=== PATIENT | female | born 1995 | race Caucasian/White ===

== ENCOUNTER 2018-12-26 22:11 | Emergency (ER) | payer MEDICAID, OTHER ==
[~2018-12-26] VITALS: Ht 165.1 cm; Wt 57.0 kg
[2018-12-26 23:13] LABS: CLARITY URINE TURBID (CLEAR); COLOR URINE YELLOW (YELLOW); KETONES URINE NEGATIVE (NEGATIVE); LEUKOCYTE ESTERASE URINE 1+ (NEGATIVE); NITRITE URINE NEGATIVE (NEGATIVE); OCCULT BLOOD URINE NEGATIVE (NEGATIVE); PH URINE >=9.0 (4.5-8.0); PROTEIN URINE NEGATIVE (NEGATIVE); SPECIFIC GRAVITY URINE 1.023 (1.005-1.030); UROBILINOGEN URINE 0.2 E.U./dL (0.2-1.0)
[2018-12-27] MEDS ORDERED: SODIUM CHLORIDE 0.9% 1,000 ML IV NR (01:26)
[2018-12-27 01:48] LABS: BASOPHILS % 0.3 % (0.0-2.0); EOSINOPHILS % 1.6 % (0.0-5.0); HEMATOCRIT. 35.6 % (36.0-48.0); LYMPHOCYTES % 29.8 % (20.0-50.0); MEAN CORPUSCULAR HEMOGLOBIN 28.3 pg (28.0-32.0); MEAN PLATELET VOLUME 6.8 fl (7.4-10.4); MONOCYTES % 9.3 % (2.0-8.0); PLATELET 217 x1000/uL (130-400); RED BLOOD CELL COUNT 4.24 mill/uL (4.2-5.4); RED CELL DISTRIBUTION WIDTH 16.7 % (11.6-14.6)
[2018-12-27 02:06] LABS: CHLORIDE 108 mEq/L (98-107)
[2018-12-27 02:29] LABS: B-HCG QUANTITATIVE 7288 mIU/mL (<3)
[2018-12-27] MEDS ORDERED: CEPHALEXIN 250MG CAPSULE PO NR (03:45)
[2018-12-27] MEDS ORDERED: ACETAMINOPHEN 500MG TABLET PO ONE (04:15)
[2018-12-27 04:30] VITALS: BP 107/54
== END 2018-12-27 04:47 | disposition home or self-care (01) ==
LOC: ER 22:11
DX: O20.0 Threatened abortion (principal); O23.42 Unspecified infection of urinary tract in pregnancy, second trimester; Z3A.16 16 weeks gestation of pregnancy
CPT/HCPCS: 36415; 76805; 81003; 81025; 84702; 86850; 86900; 96360; 99284

== ENCOUNTER 2022-07-11 12:39 | Observation (INO) | payer OTHER ==
[~2022-07-11] VITALS: Ht 160 cm; Wt 65.3 kg
[2022-07-12] MEDS ORDERED: PREN-15 PO (01:22)
== END 2022-07-11 17:00 | disposition home or self-care (01) ==
LOC: 8 EST LDRP 12:39
PROVIDERS: ADMIT Obstetrics & Gynecology; ATTEND Obstetrics & Gynecology
DX: O99.891 Other specified diseases and conditions complicating pregnancy (principal); R10.30 Lower abdominal pain, unspecified; M54.9 Dorsalgia, unspecified; O62.9 Abnormality of forces of labor, unspecified; Z3A.39 39 weeks gestation of pregnancy
CPT/HCPCS: 59025; 76815; 76818; G0378; G0379

== ENCOUNTER 2022-07-12 00:29 | Inpatient (IN) | payer OTHER ==
[~2022-07-12] VITALS: Ht 162.6 cm; Wt 65.8 kg
[2022-07-12] MEDS ORDERED: PREN-15 PO (01:22)
[2022-07-12] MEDS ORDERED: CARBOPROST TROMETHAMINE 250 MCG/ML AMPUL IM PRN (01:30)
[2022-07-12] MEDS ORDERED: LIDOCAINE HCL 1% 20ML VIAL (Pyxis) INJ INFIL SCH ×2 (01:30→22:00)
[2022-07-12] MEDS ORDERED: NALOXONE HCL 0.4 MG/ML 1ML VIAL IM PRN (01:30)
[2022-07-12] MEDS ORDERED: METHYLERGONOVINE MALEATE 0.2 MG/ML IM PRN (01:30)
[2022-07-12] MEDS: LACTATED RINGERS 1,000 ML IV SCH ×4 (02:36→23:59)
[2022-07-12 03:21] LABS: CLARITY URINE CLEAR (CLEAR); COLOR URINE YELLOW (YELLOW); KETONES URINE TRACE (NEGATIVE); LEUKOCYTE ESTERASE URINE 1+ (NEGATIVE); NITRITE URINE NEGATIVE (NEGATIVE); OCCULT BLOOD URINE NEGATIVE (NEGATIVE); PH URINE 6.5 (4.5-8.0); PROTEIN URINE TRACE (NEGATIVE)
[2022-07-12 03:21] LABS: BASOPHILS % 0.4 % (0.0-2.0); EOSINOPHILS % 1.2 % (0.0-5.0); HEMATOCRIT. 29.1 % (36.0-48.0); HEMOGLOBIN. 9.6 g/dL (12.0-16.0); LYMPHOCYTES % 26.5 % (20.0-50.0); MEAN CORPUSCULAR HEMOGLOBIN 24.6 pg (28.0-32.0); MEAN CORPUSCULAR VOLUME 74.8 fL (81.0-99.0); MEAN PLATELET VOLUME 7.8 fl (7.4-10.4); MONOCYTES % 8.9 % (2.0-8.0); PLATELET 198 x1000/uL (130-400); RED BLOOD CELL COUNT 3.89 mill/uL (4.2-5.4)
[2022-07-12 03:31] LABS: *AMPHETAMINES SCREEN URINE NEGATIVE (NEGATIVE); *BARBITURATES SCREEN URINE NEGATIVE (NEGATIVE); *BENZODIAZEPINES SCREEN URINE NEGATIVE (NEGATIVE); *COCAINE SCREEN URINE NEGATIVE (NEGATIVE); METHADONE URINE SCREEN NEGATIVE (NEGATIVE); OPIATES URINE SCREEN NEGATIVE (NEGATIVE); PHENCYCLIDINE URINE SCREEN NEGATIVE (NEGATIVE)
[2022-07-12 03:32] LABS: INR 0.9; PARTIAL THROMBOPLASTIN TIME 24.2 sec (23.4-31.0); PROTHROMBIN TIME 9.9 sec (9.6-11.0)
[2022-07-12 04:16] LABS: CANNABINOID URINE SCREEN PRESUMTIVE POSITIVE (NEGATIVE)
[2022-07-12 04:22] LABS: HEPATITIS B SURFACE ANTIGEN NEGATIVE
[2022-07-12] MEDS ORDERED: ONDANSETRON HCL 4MG/2ML INJ IV PRN (09:30)
[2022-07-12] MEDS ORDERED: MISOPROSTOL 100MCG TABLET VG PRN (09:30)
[2022-07-12] MEDS ORDERED: ROPIVACAINE HCL/PF EPIDURAL 200 ML EPI SCH (13:30)
[2022-07-12] MEDS ORDERED: OXYTOCIN 30 UNITS/500ML NS PMX 500 ML IV SCH (17:30)
[2022-07-12] MEDS ORDERED: MINERAL OIL 30ML BOTTLE TOP NR (22:00)
[2022-07-12] MEDS: BUTORPHANOL TARTRATE 2 MG/ML VIAL IV PRN ×2 (22:03→23:59)
[2022-07-13] MEDS ORDERED: ONDANSETRON HCL 4MG/2ML INJ IV PRN (00:15)
[2022-07-13] MEDS ORDERED: ROPIVACAINE HCL/PF EPIDURAL 200 ML EPI ONE (01:38)
[2022-07-13] MEDS: LACTATED RINGERS 1,000 ML IV SCH ×2 (02:10→05:31)
[2022-07-13] MEDS ORDERED: OXYTOCIN 30 UNITS/500ML NS PMX 500 ML IV SCH (08:30)
[2022-07-13] MEDS ORDERED: LANOLIN OINT 7GM TUBE TOP PRN (08:30)
[2022-07-13] MEDS ORDERED: RHO(D) IMMUNE GLOBULIN 300 MCG/SYR IM PRN (08:30)
[2022-07-13] MEDS ORDERED: IBUPROFEN 400MG TABLET PO PRN (08:30)
[2022-07-13] MEDS ORDERED: METHYLERGONOVINE MALEATE 0.2 MG/ML IM PRN (08:30)
[2022-07-13 09:00] VITALS: BP 112/60
[2022-07-13] MEDS: IBUPROFEN 800MG TABLET PO PRN ×2 (10:10→20:22)
[2022-07-13] MEDS: PRENATAL VIT/FE FUMARATE/FA TABLET PO SCH (10:10)
[2022-07-13 16:00] VITALS: BP 102/63
[2022-07-13 20:00] VITALS: BP 109/56
[2022-07-13] MEDS ORDERED: DOCUSATE SODIUM 100MG CAPSULE PO SCH (21:00)
[2022-07-14] MEDS: IBUPROFEN 800MG TABLET PO PRN ×2 (02:09→10:00)
[2022-07-14 04:00] VITALS: BP 110/60
[2022-07-14 06:52] LABS: BASOPHILS % 0.3 % (0.0-2.0); EOSINOPHILS % 1.4 % (0.0-5.0); HEMATOCRIT. 26.1 % (36.0-48.0); HEMOGLOBIN. 8.7 g/dL (12.0-16.0); LYMPHOCYTES % 22.9 % (20.0-50.0); MEAN CORPUSCULAR HEMOGLOBIN 24.3 pg (28.0-32.0); MEAN CORPUSCULAR VOLUME 73.2 fL (81.0-99.0); MEAN PLATELET VOLUME 7.7 fl (7.4-10.4); MONOCYTES % 8.7 % (2.0-8.0); NEUTROPHILS % 66.7 % (40.0-76.0); PLATELET 196 x1000/uL (130-400); RED BLOOD CELL COUNT 3.57 mill/uL (4.2-5.4); RED CELL DISTRIBUTION WIDTH 14.1 % (11.6-14.6)
[2022-07-14] MEDS ORDERED: IBUP-2030 PO (08:04)
[2022-07-14] MEDS ORDERED: FERR325T6 MT (08:04)
[2022-07-14] MEDS: PRENATAL VIT/FE FUMARATE/FA TABLET PO SCH (09:59)
[2022-07-14 10:00] VITALS: BP 107/66
[2022-07-14] MEDS ORDERED: BENZOCAINE/LANOLIN/ALOE VERA SPRAY TOP PRN (12:30)
[2022-07-18 17:09] LABS: CANNABINOID CONFIRMATION URINE Positive (.)
== END 2022-07-14 15:50 | disposition home or self-care (01) | DRG 560 ==
LOC: OBSVTOIN 00:29 → 8 EST LDRP 00:29 → 8EST 07-13 09:00
PROVIDERS: ADMIT Obstetrics & Gynecology; ATTEND Obstetrics & Gynecology
PROC: 10E0XZZ Delivery of Products of Conception, External Approach (ICD-10-PCS; principal; 2022-07-13)
PROC: 0W8NXZZ Division of Female Perineum, External Approach (ICD-10-PCS; 2022-07-13)
PROC: 3E0R3BZ Introduction of Anesthetic Agent into Spinal Canal, Percutaneous Approach (ICD-10-PCS; 2022-07-13)
PROC: 0UQMXZZ Repair Vulva, External Approach (ICD-10-PCS; 2022-07-13)
DX: O69.81X0 Labor and delivery complicated by cord around neck, without compression, not applicable or unspecified (principal); Z37.0 Single live birth; O41.03X0 Oligohydramnios, third trimester, not applicable or unspecified; D62 Acute posthemorrhagic anemia; O99.02 Anemia complicating childbirth; Z20.822 Contact with and (suspected) exposure to COVID-19; Z3A.39 39 weeks gestation of pregnancy
CPT/HCPCS: 36415; 76805; 76818; 80305; 80349; 81003; 85025; 86592; 86703; 86762; 86850; 86900; 86920; 87340; 87426; J0595; J2405; J2795; J3490; J7120; A4315; J2590

== ENCOUNTER 2023-02-16 00:04 | Emergency (ER) | payer MEDICAID, OTHER ==
[~2023-02-16] VITALS: Ht 165.1 cm; Wt 60.0 kg
[~2023-02-16 00:04] MED LIST: FERR325T6 MT; IBUP-2030 PO; PREN-15 PO
[2023-02-16 00:25] VITALS: BP 125/75; PULSE 80; RESP 18; TEMP 98.6; O2SAT 96
[2023-02-16 00:48] LABS: BASOPHILS % 0.3 % (0.0-2.0); EOSINOPHILS % 1.1 % (0.0-5.0); HEMATOCRIT. 37.3 % (36.0-48.0); LYMPHOCYTES % 37.7 % (20.0-50.0); MEAN CORPUSCULAR HEMOGLOBIN 28.9 pg (28.0-32.0); MEAN CORPUSCULAR HGB CONC 34.9 g/dL (31.0-37.0); MONOCYTES % 8.3 % (2.0-8.0); NEUTROPHILS % 52.6 % (40.0-76.0); PLATELET 244 x1000/uL (130-400); WHITE BLOOD COUNT 5.9 x1000/uL (4.5-11.0)
[2023-02-16 00:54] LABS: CLARITY URINE TURBID (CLEAR); COLOR URINE DARK YELLOW (YELLOW); GLUCOSE URINE NEGATIVE (NEGATIVE); KETONES URINE NEGATIVE (NEGATIVE); LEUKOCYTE ESTERASE URINE TRACE (NEGATIVE); NITRITE URINE NEGATIVE (NEGATIVE); OCCULT BLOOD URINE 3+ (NEGATIVE); PROTEIN URINE 1+ (NEGATIVE); SPECIFIC GRAVITY URINE 1.027 (1.005-1.030)
[2023-02-16 00:55] LABS: CHLORIDE 106 mEq/L (98-107); INDEX HEMOLYSI 1 (1-3); INDEX ICTERIC 1 (1-4); INDEX LIPEMIC 1 (1-3); POTASSIUM 3.3 mEq/L (3.5-5.1); SODIUM 137 mEq/L (136-145)
[2023-02-16 00:56] LABS: BACTERIA URINE 1+; YEAST URINE NONE SEEN
[2023-02-16 01:03] LABS: ALANINE AMINOTRANSFERASE 20 IU/L (13-61); ALBUMIN 3.6 g/dL (3.4-5.0); ASPARTATE AMINOTRANSFERASE 14 IU/L (15-37); BILIRUBIN TOTAL 0.2 mg/dL (0.1-1.0); CALCIUM 8.3 mg/dL (8.5-10.1); CARBON DIOXIDE 28 mEq/L (21-32); CREATININE 0.5 mg/dL (0.6-1.3); GLUCOSE 88 mg/dL (70-105); UREA NITROGEN BLOOD 9 mg/dL (7-21)
[2023-02-16 02:05] LABS: SQUAMOUS EPITHELIAL CELL URINE 2+ /lpf (RARE/1+)
[2023-02-16 02:11] LABS: RBC URINE 0-2 /hpf (0-2)
[2023-02-16 02:15] LABS: UCG SCREEN POSITIVE
[2023-02-16] MEDS ORDERED: TOPUD PO (05:51)
[2023-02-16] MEDS ORDERED: NITR100C PO (05:51)
== END 2023-02-16 06:09 | disposition home or self-care (01) ==
LOC: ER 00:04
DX: O20.0 Threatened abortion (principal); Z3A.11 11 weeks gestation of pregnancy; O23.41 Unspecified infection of urinary tract in pregnancy, first trimester; N39.0 Urinary tract infection, site not specified
CPT/HCPCS: 36415; 76801; 80053; 81003; 81025; 85025; 86850; 86900; 99284

== ENCOUNTER 2024-02-01 12:12 | Emergency (ER) | payer MEDICAID ==
[~2024-02-01] VITALS: Ht 165.1 cm; Wt 65.8 kg
[~2024-02-01 12:12] MED LIST changes: +NITR100C PO; +TOPUD PO
[2024-02-01 12:29] VITALS: BP 131/70; PULSE 62; RESP 16; TEMP 98.7; O2SAT 100
[2024-02-01] MEDS: LIDOCAINE HCL 1% 20ML VIAL INFIL ONE (13:58)
[2024-02-01] MEDS ORDERED: BACI3.5O5 OP (14:30)
[2024-02-01] MEDS ORDERED: IBUP-2028 MT (14:30)
[2024-02-01 15:34] LABS: CLARITY URINE CLOUDY (CLEAR); COLOR URINE YELLOW (YELLOW); GLUCOSE URINE NEGATIVE (NEGATIVE); KETONES URINE NEGATIVE (NEGATIVE); LEUKOCYTE ESTERASE URINE TRACE (NEGATIVE); NITRITE URINE NEGATIVE (NEGATIVE); OCCULT BLOOD URINE NEGATIVE (NEGATIVE); PROTEIN URINE NEGATIVE (NEGATIVE); SPECIFIC GRAVITY URINE 1.019 (1.005-1.030); UROBILINOGEN URINE 0.2 E.U./dL (0.2-1.0)
[2024-02-01 16:48] LABS: BACTERIA URINE 2+; RBC URINE 0-2 /hpf (0-2); SQUAMOUS EPITHELIAL CELL URINE 3+ /lpf (RARE/1+); WBC URINE 0-2 /hpf (0-2)
== END 2024-02-01 14:54 | disposition home or self-care (01) ==
LOC: ER 12:12
DX: S61.213A Laceration without foreign body of left middle finger without damage to nail, initial encounter (principal); Z79.899 Other long term (current) drug therapy; X58.XXXA Exposure to other specified factors, initial encounter; Y93.89 Activity, other specified; Y92.89 Other specified places as the place of occurrence of the external cause; Y99.8 Other external cause status
CPT/HCPCS: 81003; 81025; 73120; 12002; 99284; J3490; Z7610 ×2